=== PATIENT | female | born 1950 | race Two or more races ===

== ENCOUNTER 2022-09-24 12:00 | Outpatient (CLI) | payer MEDICARE, OTHER ==
[2022-09-24 12:51] LABS: BASOPHILS % (AUTO) 0.7 % (0.0-2.0); EOSINOPHILS % (AUTO) 1.8 % (0.0-6.0); HEMATOCRIT 39 % (33-45); HEMOGLOBIN 12.7 g/dL (11.5-14.8); LYMPHOCYTES # (AUTO) 1.6 K/uL (0.8-4.8); LYMPHOCYTES % (AUTO) 31.1 % (20.0-44.0); MEAN CORPUSCULAR HGB CONC 32 g/dl (31.0-36.0); MEAN CORPUSCULAR VOLUME 84 fL (82-100); MONOCYTES # (AUTO) 0.4 K/uL (0.1-1.30); MONOCYTES % (AUTO) 7.8 % (2.0-12.0); NEUTROPHILS % (AUTO) 58.6 % (43.0-81.0); PLATELET COUNT (AUTO) 174 K/uL (150-450); WHITE BLOOD COUNT (AUTO) 5.1 K/uL (4.3-11.0)
[2022-09-24 12:52] LABS: BILIRUBIN,URINE NEGATIVE (NEGATIVE); COLOR,URINE YELLOW (YELLOW); LEUKOCYTE ESTERASE ,URINE NEGATIVE (NEGATIVE); NITRITE, URINE NEGATIVE (NEGATIVE); PROTEIN,URINE NEGATIVE (NEGATIVE); UGLUCOSE NEGATIVE (NEGATIVE); UROBILINOGEN,URINE 0.2 EU/dL (0.2)
[2022-09-24 13:04] LABS: BACTERIA,URINE Rare /HPF (None Seen); CREATININE 0.6 mg/dL (0.6-1.3); POTASSIUM 3.9 mmol/L (3.5-5.1); RBC,URINE 0-2 /HPF (0-2); SQUAMOUS EPITHELIAL CELL,UR Moderate /HPF (None Seen); WBC,URINE 0-2 /HPF (0-3)
== END 2022-09-24 23:59 | disposition home or self-care (01) ==
LOC: LAB 12:00
PROVIDERS: ATTEND Dentist Oral and Maxillofacial Surgery
DX: Z01.818 Encounter for other preprocedural examination (principal); Z20.822 Contact with and (suspected) exposure to COVID-19
CPT/HCPCS: 71045; 85025; 80048; 81001; 36415; 85730; U0003; C9803

== ENCOUNTER 2022-10-05 10:33 | Day surgery (SDC) | payer MEDICARE, OTHER ==
--- NOTE | 2022-10-05 10:30 | NUR ---
MS RN NOTES RECEIVED PATIENT AMBULATORY FROM HOME, A/O X4. ON ROOM AIR TOLERATING WELL. NO SOB NOTED. NOT IN DISTRESS. WITH NO IV ACCESS. STILL TO OBTAIN CONSENTS FOR PROCEDURE. PATIENT STATED WAS ON NPO SINCE LAST NIGHT AT 1999. PATIENT IS FOR RESECT FAILED BONE GRAFTS, REDUCE NON-UNION FRACTURE WITH BONE GRAFT AND VERTICAL SCREWS. SAFETY MEASURES IN PLACED. CALL LIGHT WITHIN REACH. BED ON LOWEST LOCKED POSITION, SIDE RAILS UP X2. WILL CONTINUE TO MONITOR.
[2022-10-05 11:00] VITALS: BP 130/84
--- NOTE | 2022-10-05 12:00 | NUR ---
RN NOTES INSERTED IV AT THE LEFT FOREARM G20, SALINE LOCKED, PATENT AND INTACT. CONSENTS WERE SIGNED BY PATIENT BUT REFUSED TO SIGN BLOOD TRANSFUSION CONSENT NOR SIGN THE REFUSAL FOR BLOOD TRANSFUSION. ADVANCE DIRECTIVES FOR BLOOD TRANSFUSION ON CHART. PATIENT IS CONGREGATION. CHECKLIST COMPLETED.
[2022-10-05] MEDS ORDERED: MIDAZOLAM HCL 2 MG/2ML VIAL ONE (13:29)
[2022-10-05] MEDS ORDERED: VANCOMYCIN 1 GM VIAL ONE ×2 (13:29→13:32)
[2022-10-05] MEDS ORDERED: FENTANYL PF 100MCG/2ML AMPUL ONE (13:29)
[2022-10-05] MEDS ORDERED: FAMOTIDINE/PF INJ 20 MG/2 ML VIAL IV ONE (13:30)
[2022-10-05] MEDS ORDERED: DEXAMETHASONE SOD PHOSPHATE 10 MG/ML VIAL ONE (13:32)
[2022-10-05] MEDS ORDERED: LIDOCAINE 2%-EPI 1:100,000 30 ML VIAL ONE (13:32)
[2022-10-05] MEDS ORDERED: LABETALOL HCL IV 100MG VIAL ONE (14:33)
[2022-10-05] MEDS ORDERED: IV NS 0.9% 1,000 ML IV PRN (16:00)
[2022-10-05] MEDS ORDERED: HYDROMORPHONE 1 MG/1 ML DISP.SYRIN IV PRN (16:00)
[2022-10-05] MEDS ORDERED: ONDANSETRON HCL/PF 4 MG/2 ML VIAL IV PRN (16:00)
[2022-10-05 16:40] VITALS: BP 100/56
--- NOTE | 2022-10-05 16:40 | NUR ---
RN NOTES COLD COMPRESSION PROVIDED ON BILATERAL FACE. S/P RESECT BONE GRAFT FAILURE, LEFT MANDIBLE, RESECT NEOPLASM, RIGHT MANDIBLE, MECHANICAL ABLATION OF NON-UNION FRACTURES AND REDUCTION WITH VERTICAL SCREWS AND BONE GRAFTING. NO BLEEDING NOTED ON OPERATIVE SITE.
--- NOTE | 2022-10-05 16:40 | NUR ---
RN NOTES RECEIVED PATIENT FROM OR ENDORSED BY MARKO RODRIGUEZ. PATIENT IS AWAKE AND A/O X4. ON ROOM AIR TOLERATING WELL. NO SOB NOTED. NOT IN DISTRESS. WITH IV ACCESS AT THE LEFT FOREARM G20 WITH IVF NS AT 100ML/HR INFUSING WELL. NO BLEEDING NOTED. VITAL SIGNS STABLE. REPORTED TO HAVE BEEN HAVING BOWEL MOVEMENT AT THE RECOVERY ROOM. COLD COMPRESSION P
[2022-10-05 17:20] VITALS: BP 121/74
--- NOTE | 2022-10-05 18:17 | NUR ---
DAY SURGERY CLOSING NOTES PATIENT RESTING ON BED AND A/O X4. ON ROOM AIR TOLERATING WELL. NO SOB NOTED. NOT IN DISTRESS. NO BLEEDING NOTED. WITH NO COMPLAINTS OF PAIN OR DISCOMFORT AT THIS TIME. WITH IV ACCESS AT THE LEFT FOREARM G20 WITH IVF NS AT 100ML/HR INFUSING WELL. PATIENT IS FOR DISCHARGE WHEN DISCHARGE CRITERIA'S MET TONIGHT. TOLERATING CLEAR LIQUID DIET, 1 BM POST SURGERY. MONITOR PATIENT IF ABLE TO PEE. SAFETY MEASURES IN PLACED. CALL LIGHT WITHIN REACH. BED ON LOWEST LOCKED POSITION, SIDE RAILS UP X2. WILL ENDORSE TO NEXT SHIFT FOR [place].
--- NOTE | 2022-10-05 19:30 | NUR ---
RN OPENING NOTES RECEIVED PATIENT AWAKE IN BED. PATIENT IS A/O TIMES 4. ABLE TO MAKE NEEDS KNOWN. NO PAIN NOTED. NO SOB NOTED. NO DISTRESS NOTED. DAUGHTER ANI AT BED SIDE. IV ACCESS ON THE LEFT FA G # 20 INTACT. PATIENT WILL BED DISCHARGE TONIGHT . SHE ALREADY VOIDED . AMBULATES AND CONSUMING ICE CREAM AT THIS TIME. ALL SAFETY MEASURES IN PLACE. BED LOCKED IN THE LOWEST POSITION. CALL LIGHT AND TABLE IN EASY REACH. SIDE RAILS UP TIMES 2. WILL CONTINUE TO MONITOR CLOSELY.
--- NOTE | 2022-10-05 20:30 | NUR ---
RN NOTES DISCHARGE PATIENT IN STABLE CONDITION WITH STABLE VITAL SIGNS. NO PAIN NOTED. NO SOB NOTED. NO DISTRESS NOTED. PATIENT A/O TIMES 4. DAUGHTER BED SIDE. ABLE TO TALK AND COMFORTABLE FOR DISCHARGE. NO BLEEDING NOTED. NO DISTRESS NOTED. BREATHING EVEN AND UNLABORED. DISCHARGE INSTRUCTIONS GIVEN TO THE PATIENT. PATIENT AND THE DAUGHTER VERBALIZED UNDERSTANDING. TO VISIT THE DR IN 10 DAYS AND CONSUME SOFT TO CLEAR LIQUIDS FOR 10 DAYS. PATIENT SIGNED THE DISCHARGE PAPERS. PATIENT HAD ALL HER BELONGINGS. IV SITE REMOVED . COVERED WITH DRY DRESSING. NO BLEEDING NOTED. ID BAND REMOVED. WALK WITH PATIENT FROM THE ER EXIT DOOR. PATIENT LEFT HOSPITAL IN STABLE CONDITION AT 2030 PM. MD AND CHARGE NURSE AWARE OF THE DISCHARGE.
== END 2022-10-05 18:00 | disposition home or self-care (01) ==
LOC: DS 10:33 → UNDOADMIN 10:40 → MED 10:40 → DS 18:00 → UNDODISIN 20:30
PROVIDERS: ATTEND Dentist Oral and Maxillofacial Surgery
DX: T86.831 Bone graft failure (principal); S02.69XK Fracture of mandible of other specified site, subsequent encounter for fracture with nonunion; Y83.8 Other surgical procedures as the cause of abnormal reaction of the patient, or of later complication, without mention of misadventure at the time of the procedure; Y92.009 Unspecified place in unspecified non-institutional (private) residence as the place of occurrence of the external cause; X58.XXXD Exposure to other specified factors, subsequent encounter; D16.5 Benign neoplasm of lower jaw bone; Z79.01 Long term (current) use of anticoagulants; I48.20 Chronic atrial fibrillation, unspecified; Z90.710 Acquired absence of both cervix and uterus
CPT/HCPCS: 21461; 21215; 41825; 88311; 88305; J1100; J2704; J3010; J3490 ×3; J2370; J2765; J3370; J2405; J7030; C1713; J2250; G0378

== ENCOUNTER 2023-05-10 05:18 | Inpatient (IN) | payer MEDICARE, OTHER ==
[~2023-05-10] VITALS: Ht 157.5 cm; Wt 83.9 kg
[2023-05-10] VITALS (7 sets, daily range): BP systolic 106–134; BP diastolic 61–98; TEMP 97.5–98.4; O2SAT 94–99
[2023-05-10] MEDS ORDERED: OXYMETAZOLINE HCL NASAL SPRAY 30 ML BOTTLE NS ONE (07:07)
[2023-05-10] MEDS ORDERED: LIDOCAINE 2%-EPI 1:100,000 30 ML VIAL ONE (07:07)
[2023-05-10] MEDS ORDERED: VANCOMYCIN 1 GM VIAL ONE (07:07)
[2023-05-10] MEDS ORDERED: FENTANYL PF 100MCG/2ML AMPUL ONE (07:26)
[2023-05-10] MEDS ORDERED: Magnesium 1 GM/2 ML VIAL ONE (07:26)
[2023-05-10] MEDS ORDERED: ROCURONIUM BROMIDE 50 MG/5 ML ONE (07:26)
[2023-05-10] MEDS ORDERED: FAMOTIDINE/PF INJ 20 MG/2 ML VIAL IV ONE (07:26)
[2023-05-10] MEDS ORDERED: AMIODARONE 150 MG/3 ML VIAL IV ONE (08:30)
[2023-05-10] MEDS ORDERED: VENL37.55 PO (08:47)
[2023-05-10] MEDS ORDERED: APIX5TAB PO (08:47)
[2023-05-10] MEDS ORDERED: METO25TA6 PO (08:47)
[2023-05-10] MEDS ORDERED: HYDROMORPHONE 1 MG/1 ML DISP.SYRIN IV PRN (09:30)
[2023-05-10] MEDS ORDERED: IV NS 0.9% 1,000 ML IV PRN (09:30)
[2023-05-10] MEDS ORDERED: ONDANSETRON HCL/PF 4 MG/2 ML VIAL IV PRN (09:30)
[2023-05-10] MEDS ORDERED: ACETAMINOPHEN 325 MG TABLET PO PRN (09:30)
[2023-05-10] MEDS: VANCOMYCIN 1 GM in IV D5W 250ml IV SCH (20:19)
[2023-05-11] VITALS: BP 115/65; TEMP 98.7; O2SAT 96
[2023-05-11 04:00] VITALS: BP 113/63; TEMP 98.1; O2SAT 97
[2023-05-11 07:00] VITALS: BP 112/62; TEMP 98.1; O2SAT 95
[2023-05-11] MEDS: VANCOMYCIN 1 GM in IV D5W 250ml IV SCH (08:00)
[2023-05-11 08:44] VITALS: BP 112/62
[2023-05-11] MEDS ORDERED: APIXABAN 5 MG TABLET PO SCH (09:00)
[2023-05-11] MEDS ORDERED: VENLAFAXINE XR 37.5 MG CAP.SR.24H PO SCH (09:00)
[2023-05-11] MEDS ORDERED: METOPROLOL TARTRATE 25 MG TABLET PO SCH (09:00)
== END 2023-05-11 12:00 | disposition home or self-care (01) | DRG 496 ==
LOC: DS 05:18 → MED 05:19 → TELE 19:39
PROVIDERS: ADMIT Nurse Practitioner Acute Care; ATTEND Nurse Practitioner Acute Care
PROC: 0NPW04Z Removal of Internal Fixation Device from Facial Bone, Open Approach (ICD-10-PCS; principal; 2023-05-10)
PROC: 0WB30ZZ Excision of Oral Cavity and Throat, Open Approach (ICD-10-PCS; 2023-05-10)
DX: T84.59XA Infection and inflammatory reaction due to other internal joint prosthesis, initial encounter (principal); I48.20 Chronic atrial fibrillation, unspecified; Y83.8 Other surgical procedures as the cause of abnormal reaction of the patient, or of later complication, without mention of misadventure at the time of the procedure; Y92.009 Unspecified place in unspecified non-institutional (private) residence as the place of occurrence of the external cause; E78.5 Hyperlipidemia, unspecified; Z79.01 Long term (current) use of anticoagulants; Z90.710 Acquired absence of both cervix and uterus; I08.0 Rheumatic disorders of both mitral and aortic valves; M27.8 Other specified diseases of jaws
CPT/HCPCS: 82962-TC; A4223; G0378; J0282; J0330; J0360; J2405; J2765; J3010; J3370; J3475; J3490; J7030; J7060